=== PATIENT | female | born 1980 | race Caucasian/White ===

== ENCOUNTER 2017-01-05 00:29 | Emergency (ER) | payer BC ==
[2017-01-05 00:41] VITALS: BP 110/66; PULSE 88; TEMP 98.3; BMI 20.8
--- NOTE | 2017-01-05 00:57 | PDOC ---
History of Present Illness - General Chief Complaint: Back Pain Stated Complaint: BACK PAIN Time Seen by Provider: 01/05/17 00:51 History Source: Patient Exam Limitations: No Limitations - History of Present Illness Initial Comments: 01/05/17 01:12 This is a 36-year-old female with long history of chronic pain including neck pain back pain. 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 Patient said that she has a soft collar that she is more in the past but wasn't able to find it. Patient said she's been taking Tylenol and ibuprofen for the pain without relief. Patient said she is ALLERGIC to aspirin. Patient's ALLERGY is that it thins her blood and she doesn't like to take it rather than a true ALLERGY. Patient takes ibuprofen without difficulty. PAST MEDICAL HISTORY: Chronic pain, anemia, hypothyroid PAST SURGICAL HISTORY: no significant history FAMILY HISTORY: no pertinant history SOCIAL HISTORY: Pt lives with family and is employed. MEDICATIONS: reviewed ALLERGIES: As per nursing notes Review of Systems General: No fevers or chills, no weakness, no weight loss HEENT: No change in vision. No sore throat,. No ear pain CardioVascular: No chest pain or shortness of breath Respiratory:No cough, or wheezing. Gastrointestinal: no nausea, vomitting, diarrhea or constipation, No rectal bleeding Genitourinary: No dysuria, hematuria, or frequency Musculoskeletal: Neck and back pain as per history of present illness Neurologic: No headache, vertigo, dizziness or loss of consciousness Psychiatric: nor depression Skin: No rashes or easy bruising Endocrine: no increased thirst or abnormal weight change Allergic: no skin or latex allergy All other systems reviewed and normal GENERAL: The patient is awake, alert, and fully oriented, in no acute distress. HEAD: Normal with no signs of trauma. EYES: Pupils equal, round and reactive to light, extraocular movements intact, sclera anicteric, conjunctiva clear. SPINE: There is no pain on palpation of the cervical thoracic or lumbar spine. There is somesome and tenderness on palpation paraspinal area of the upper cervical spine. There is no decrease in sensation or strength of the upper extremities. EXTREMITIES: Normal range of motion, no edema. NEUROLOGICAL: Normal speech, normal gait. PSYCH: Normal mood, normal affect. SKIN: Warm, Dry, normal turgor, no rashes or lesions noted. Assessment and plan: This is a 36-year-old female with history of chronic neck pain in the past who comes in complaining of acute exacerbation of the pain. Patient was given Toradol for the pain and Flexeril. Patient had a prescription for Percocet and Flexeril sent to her pharmacy and will follow-up with her primary care doctor. Past History - Past Medical History Allergies/Adverse Reactions: Allergies Allergy/AdvReac Type Severity Reaction Status Date / Time shellfish derived Allergy Severe Difficulty Verified 12/04/15 18:56 Breathing aspirin Allergy Intermediate Swelling Verified 12/04/15 18:56 levofloxacin [From Levaquin] Allergy Mild Hives Verified 12/04/15 18:56 Home Medications: Ambulatory Orders Cyclobenzaprine HCl [Flexeril 10 mg] 10 mg PO TID #21 tablet 01/05/17 Naproxen [Naprosyn -] 500 mg PO BID #14 tablet 01/05/17 Anemia: Yes Asthma: Yes Cancer: No Cardiac Disorders: No CVA: No COPD: No CHF: No Dementia: No Diabetes: No GI Disorders: No Disorders: No HTN: No Hypercholesterolemia: No Liver Disease: No Seizures: No Thyroid Disease: Yes (hyperthyroid) Other medical history: BACK INJURY - Surgical History Abdominal Surgery: No Appendectomy: No Cardiac Surgery: No Cholecystectomy: No Lung Surgery: No Neurologic Surgery: No Orthopedic Surgery: No - Immunization History Td Vaccination: Yes Immunization Up to Date: Yes - Suicide/Smoking/Psychosocial Hx Smoking Status: Yes Smoking History: Never smoked Have you smoked in the past 12 months: Yes Number of Cigarettes Smoked Daily: 3 If you are a former smoker, when did you quit?: 1 month ago Information on smoking cessation initiated: Yes 'Breaking Loose' booklet given: 01/05/17 Hx Alcohol Use: No Drug/Substance Use Hx: No Substance Use Type: None Hx Substance Use Treatment: No *Physical Exam - Vital Signs Last Vital Signs Temp Pulse Resp BP Pulse Ox 98.3 F 88 16 110/66 98 01/05/17 00:38 01/05/17 00:38 01/05/17 00:38 01/05/17 00:38 01/05/17 00:38 *DC/Admit/Observation/Transfer Diagnosis at time of Disposition: Neck pain - Discharge Dispostion Disposition: HOME Condition at time of disposition: Stable Admit: No - Prescriptions Prescriptions: Cyclobenzaprine HCl [Flexeril 10 mg] 10 mg PO TID #21 tablet Naproxen [Naprosyn -] 500 mg PO BID #14 tablet - Patient Instructions Additional Instructions: For the pain take Naprosyn 1 tablet twice a day. For the spasm take Flexeril one tablet 3 times a day. Return to the emergency department immediately with ANY new, persistent or worsening symptoms. Continue any medications as previously prescribed by your physician. You should follow up with your primary doctor as soon as possible regarding today's emergency department visit. . Please make sure your doctor reviews the results of your emergency evaluation. Thank you for coming to the Emergency Department today for your care. It was a pleasure to see you today. Please note that your evaluation is INCOMPLETE until you follow-up with your doctor.
[2017-01-05] MEDS ORDERED: KETOROLAC TROMETHAMINE 60 MG/2 ML VIAL IM ONE (00:58)
[2017-01-05] MEDS ORDERED: KETOROLAC TROMETHAMINE 60 MG/2 ML VIAL ONE (00:58)
[2017-01-05] MEDS ORDERED: CYCLOBENZAPRINE HCL 10 MG TABLET (FP) PO ONE (01:01)
[2017-01-05] MEDS ORDERED: CYCLOBENZAPRINE HCL 10 MG TABLET (FP) ONE (01:03)
== END 2017-01-05 01:35 | disposition home or self-care (01) ==
LOC: FER 00:29
PROC: 3E0233Z Introduction of Anti-inflammatory into Muscle, Percutaneous Approach (ICD-10-PCS; principal; 2017-01-05)
DX: M54.2 Cervicalgia (principal)
CPT/HCPCS: 96372; 99282-25

== ENCOUNTER 2018-05-22 10:32 | Emergency (ER) | payer BC ==
[2018-05-22 10:58] VITALS: BP 100/59; PULSE 97; TEMP 98.5; BMI 20.1
--- NOTE | 2018-05-22 11:11 | PDOC ---
History of Present Illness - General Chief Complaint: Injury Stated Complaint: RIGHT HAND INJURY Time Seen by Provider: 05/22/18 10:46 History Source: Patient (Patient walked in complainng that her 8 year old child , slamed the door on her right hand , then later on she fell on it as well.) Exam Limitations: No Limitations - History of Present Illness Timing/Duration: 24 hours Severity: moderate Modifying Factors: improves with: cold therapy, rest Associated Symptoms: reports: denies symptoms Past History - Travel Traveled outside of the country in the last 30 days: No Close contact w/someone who was outside of country & ill: No - Past Medical History Allergies/Adverse Reactions: Allergies Allergy/AdvReac Type Severity Reaction Status Date / Time aspirin Allergy Severe Swelling Verified 05/22/18 10:41 codeine Allergy Severe Difficulty Verified 05/22/18 10:42 Breathing levofloxacin [From Levaquin] Allergy Severe Hives Verified 05/22/18 10:42 shellfish derived Allergy Severe Difficulty Verified 05/22/18 10:41 Breathing Home Medications: Ambulatory Orders Clonazepam [Klonopin] 1 mg PO TID 05/22/18 Levothyroxine [Synthroid -] 100 mcg PO DAILY 05/22/18 Montelukast Sodium [Singulair] 10 mg PO HS 05/22/18 Quetiapine Fumarate [Seroquel] 100 tab PO HS 05/22/18 Anemia: Yes Asthma: Yes Cancer: No Cardiac Disorders: No CVA: No COPD: No CHF: No DVT: No Dementia: No Diabetes: No GI Disorders: No Disorders: No HTN: No Hypercholesterolemia: No Liver Disease: No Psychiatric Problems: Yes (PTSD, ANXEITY, BIPOLAR BATTERED WOMWAN'S SYNDROME, PANIC ATTACJKS) Seizures: No Thyroid Disease: Yes (hyperthyroid, HYPOTHYROID) Other medical history: CELIAC DISC PROBLEMS - Surgical History Abdominal Surgery: No Appendectomy: No Cardiac Surgery: No Cholecystectomy: No Lung Surgery: No Neurologic Surgery: No Orthopedic Surgery: No - Immunization History Td Vaccination: Yes Immunization Up to Date: Yes - Suicide/Smoking/Psychosocial Hx Smoking Status: Yes Smoking History: Current every day smoker Have you smoked in the past 12 months: Yes Number of Cigarettes Smoked Daily: 5 If you are a former smoker, when did you quit?: 1 month ago Information on smoking cessation initiated: Yes 'Breaking Loose' booklet given: 01/05/17 Hx Alcohol Use: No Drug/Substance Use Hx: No Substance Use Type: None Hx Substance Use Treatment: No Review of Systems - Review of Systems Able to Perform ROS?: Yes Is the patient limited Macedonian proficient: Yes Constitutional: Yes: Malaise HEENTM: No: Symptoms Reported, See HPI, Eye Pain, Blurred Vision, Tearing, Recent change in vision, Double Vision, Cataracts, Ear Pain, Ocular Prothesis, Ear Discharge, Nose Pain, Nose Congestion, Tinnitus, Nose Bleeding, Hearing Loss , Throat Pain, Throat Swelling, Mouth Pain, Dental Problems, Difficulty Swallowing, Mouth Swelling, Other Respiratory: No: Symptoms reported, See HPI, Cough, Orthopnea, Shortness of Breath, SOB with Exertion, SOB at Rest, Stridor, Wheezing, Productive cough, Hemoptysis, Other Cardiac (ROS): No: Symptoms Reported, See HPI, Chest Pain, Edema, Irregular Heart Rate, Lightheadedness, Palpitations, Syncope, Chest Tightness, Other ABD/GI: No: Symptoms Reported, See HPI, Abdominal Distended, Abd. Pain w/ defecation, Blood Streaked Bowels, Constipated, Diarrhea, Difficulty Swallowing , Nausea, Poor Appetite, Poor Fluid Intake, Rectal Bleeding, Vomiting, Indigestion, Abdominal cramping, Tarry Stools, Other : No: Symptoms Reported, See HPI, Burning, Dysuria, Discharge, Frequency, Flank Pain, Hematuria, Incontinence, Pain, Urgency, Testicular Mass, Testicular Swelling, Lesions, Testicular Pain, Other Musculoskeletal: Yes: See HPI Integumentary: No: Symptoms Reported, See HPI, Bruising, Change in Color, Change in Hair/Nails, Dryness, Erythema, Flushing, Lesions, Lumps, Pallor, Pruritus, Rash, Sweating, Other Psychiatric: Yes: Anxiety Endocrine: No: Symptoms Reported, See HPI, Excessive Sweating, Flushing, Intolerance to Cold, Intolerance to Heat, Increased Hunger, Increased Thirst, Increased Urine, Unexplained Weight Gain, Unexplained Weight Loss, Change in Weight, Other All Other Systems: Reviewed and Negative *Physical Exam - Vital Signs Last Vital Signs Temp Pulse Resp BP Pulse Ox 98.5 F 97 H 20 100/59 L 100 05/22/18 10:33 05/22/18 10:33 05/22/18 10:33 05/22/18 10:33 05/22/18 10:33 - Physical Exam General Appearance: Yes: Nourished, Thin HEENT: positive: ETIENNE Neck: positive: Supple Lymphatic: negative: Adenopathy Musculoskeletal: positive: Decreased Range of Motion (right finger slight decreased range of flexors) Extremity: positive: Normal Capillary Refill, Other (Mild to moderate tenderness at palpation and passive / active motion of fingers and wrist) Integumentary: positive: Normal Color 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 05/22/18 14:06 *DC/Admit/Observation/Transfer Diagnosis at time of Disposition: Contusion Qualifiers: Encounter type: initial encounter Contusion area: wrist Laterality: right Qualified Code(s): S60.211A - Contusion of right wrist, initial encounter - Discharge Dispostion Disposition: HOME Condition at time of disposition: Improved Decision to Admit order: No - Referrals Referrals: Jorge Lincoln MD [Staff Physician] - - Patient Instructions Printed Discharge Instructions: How to Prevent Falls Additional Instructions: trauma to right hand, elevation If pain contiinues follow up with Ortho MD - Post Discharge Activity
[2018-05-22] MEDS ORDERED: ACETAMINOPHEN 500 MG TABLET (FP) PO ONE (12:11)
[2018-05-22] MEDS ORDERED: ACETAMINOPHEN 325 MG TABLET (FP) ONE (12:12)
[2018-05-22] MEDS ORDERED: ACETAMINOPHEN 325 MG TABLET (FP) PO ONE (12:14)
== END 2018-05-22 12:24 | disposition home or self-care (01) ==
LOC: FER 10:32
PROC: 2W3CX1Z Immobilization of Right Lower Arm using Splint (ICD-10-PCS; principal; 2018-05-22)
DX: S60.211A Contusion of right wrist, initial encounter (principal); W20.8XXA Other cause of strike by thrown, projected or falling object, initial encounter; Y93.89 Activity, other specified; Y92.89 Other specified places as the place of occurrence of the external cause; F17.210 Nicotine dependence, cigarettes, uncomplicated; J45.909 Unspecified asthma, uncomplicated; F43.10 Post-traumatic stress disorder, unspecified; F31.9 Bipolar disorder, unspecified; Z91.410 Personal history of adult physical and sexual abuse
CPT/HCPCS: 73110-TC-RT-FY; 73130-TC-RT-FY; 99281-25